=== PATIENT | male | born 1950 | race Caucasian/White ===

== ENCOUNTER 2023-07-15 14:44 | Emergency (ER) | payer MEDICARE, BC ==
[2023-07-15] MEDS ORDERED: Digoxin 0.5 MG/2 ML AMP ONE ×2 (15:20→17:00)
[2023-07-15 15:23] LABS: #Basophils 0.1 10x3/uL (0.0-0.2); #Eosinphils 0.2 10x3/uL (0.0-0.5); #Monocytes 1.1 10x3/uL (0.0-1.1); #Neutrophils 5.4 10x3/uL (1.5-8.4); %Basophils 0.7 % (0.0-2.0); %Eosinophils 1.9 % (0.0-6.0); %Lymphocytes 20.9 % (18.0-47.0); %Monocytes 12.5 % (0.0-10.0); %Neutrophils 63.8 % (40.0-75.0); Hematocrit 42.2 % (38.8-50.0); Hemoglobin 13.7 g/dL (13.5-17.5); Mean Corpuscular HGB CONC 32.5 g/dL (32.0-36.0); Mean Corpuscular Hemoglobin 30.1 pg (27.0-33.0); Mean Corpuscular Volume 92.7 fl (81.2-95.1); Mean Platelet Volume 10.9 fl (7.4-10.4); Platelet Count 247 10x3/uL (150-450); RBC Distribution Width 14.1 % (11.5-14.5); Red Blood Cell (RBC) Count 4.55 10x6/uL (4.32-5.72); White Blood Cell (WBC) Count 8.4 10x3/uL (3.5-10.5)
[2023-07-15 15:53] LABS: ALT (SGPT) 66 U/L (8-55); AST (SGOT) 37 U/L (5-34); Albumin 3.8 g/dL (3.4-4.8); Alkaline Phosphatase 63 U/L (40-110); Anion Gap 15 mmol/L (10-20); BUN (Urea Nitrogen) 18 mg/dL (8.4-25.7); Bilirubin, Total 1.3 mg/dL (0.2-1.2); CK (CPK) 73 U/L (30-200); Calc. Creatinine Clearance 0 mL/min (70-130); Calcium 8.6 mg/dL (7.8-10.44); Carbon Dioxide 22 mmol/L (23-31); Chloride 103 mmol/L (98-107); Estimated GFR 62; Globulin 2.8 g/dL (2.4-3.5); Glucose 122 mg/dL (83-110); Lipase 17 U/L (8-78); Magnesium 2.2 mg/dL (1.6-2.6); Potassium 4.2 mmol/L (3.5-5.1); Protein, Total 6.6 g/dL (5.8-8.1); Sodium 136 mmol/L (136-145)
[2023-07-15 15:56] LABS: INR-International Normal Ratio 1.2; PTT 25.4 sec (22.0-33.0)
[2023-07-15 15:59] LABS: Troponin I 0.017 ng/mL (< 0.028)
[2023-07-15 16:10] LABS: SARS-CoV-2 NAA Rapid Test Not Detected (NotDetected)
[2023-07-15 19:53] LABS: Lactic Acid 1.6 mmol/L (0.5-2.2)
[2023-07-15 20:52] LABS: Digoxin Less than 0.15 ng/mL (0.8-2.0)
== END 2023-07-15 20:33 | disposition short-term general hospital (02) ==
LOC: CSHERS 14:44
DX: I48.91 Unspecified atrial fibrillation (principal); I34.89 Other nonrheumatic mitral valve disorders; I10 Essential (primary) hypertension
CPT/HCPCS: 36415; 71045; 80053; 80162; 82550; 83605; 83690; 83735; 83880; 84443; 84484; 85025; 85610; 85730; 86850; 86900; 86901; 93005; J1160